=== PATIENT | female | born 1935 | race Caucasian/White ===

== ENCOUNTER → 2023-09-02 | Outpatient (REF) | payer MEDICARE, MEDICAID, SELFPAY ==
--- OUTSIDE RECORDS SUMMARY | 2023-09-02 05:19 | XMS RPT_ITS | CCD ---
Author Name Unknown Address [address] [place] [address] Organization [facility] Care Team Providers Care Stitcher Feeder Name Role Phone MO MARRERO DO Primary Care Physician Allergies Allergy Classification Reported Allergen(s) Allergy Type Date of Onset Reaction(s) Facility (1 source) Penicillin; Translations: [penicillins] Drug Allergy [facility] Medications Current Medications Medication Drug Class(es) Dates Sig (Normalized) Sig (Original) acetaminophen 325 mg oral capsule (1 source) Start: 12-26-2020 acetaminophen 325 mg oral capsule Dose : 650 mg = 2 cap(s), Oral, q4h, PRN as needed for pain, # 90 cap(s), 0 Refill(s) Start Date: 12/26/20 Status: Ordered allopurinol 100 mg oral tablet (1 source) Xanthine Oxidase Inhibitor Start: 01-15-2022 allopurinol 100 mg oral tablet Dose : 200 mg = 2 tab(s), Oral, qDay, # 60 tab(s), 0 Refill(s) Start Date: 01/15/22 Status: Ordered ascorbic acid 500 mg chewable tablet (1 source) Vitamin C Start: 06-29-2019 ascorbic acid 500 mg oral tablet, chewable Dose : 500 mg = 1 tab(s), Chewed, qDay, # 90 tab(s), 0 Refill(s) Start Date: 06/29/19 Status: Ordered atorvastatin 10 mg oral tablet (1 source) HMG-CoA Reductase Inhibitor Start: 07-09-2014 atorvastatin 10 mg oral tablet Dose : 10 mg = 1 tab(s), Oral, qHS Start Date: 07/09/14 Status: Ordered calcium carbonate 600 MG / ergocalciferol 200 UNT Oral Capsule (1 source) Provitamin D2 Compound Start: 06-29-2019 take 1 capsule by mouth once daily calcium-vitamin D 600 mg-200 intl units oral capsule Dose = 1 cap(s), Oral, Daily, 0 Refill(s) Start Date: 06/29/19 Status: Ordered donepezil hydrochloride 10 mg oral tablet (1 source) Start: 06-13-2017 donepezil 10 mg oral tablet Dose : 10 mg = 1 tab(s), Oral, BID Start Date: 06/13/17 Status: Ordered furosemide 20 mg oral tablet (1 source) Loop Diuretic Start: 12-26-2020 Lasix 20 mg oral tablet Dose : 40 mg = 2 tab(s), Oral, qAM, # 90 tab(s), 0 Refill(s) Start Date: 12/26/20 Status: Ordered guaiFENesin 20 mg/ml oral solution (1 source) Start: 06-29-2019 take 1 dose by mouth every four hours as needed guaiFENesin 100 mg/5 mL oral liquid Dose : 100 mg = 5 mL, Oral, q4h, PRN as needed for cough, # 300 mL, 0 Refill(s) Start Date: 06/29/19 Status: Ordered ammonium lactate 120 mg/ml topical lotion (1 source) Start: 12-26-2020 Lac-Hydrin 12% topical lotion Apply 1 leandro, Topical, BID, # 225 gram(s), 0 Refill(s), Lotion, 76.5 Start Date: 12/26/20 Status: Ordered lisinopril 20 mg oral tablet (1 source) Angiotensin Converting Enzyme Inhibitor Start: 06-11-2020 lisinopril 20 mg oral tablet Dose : 20 mg = 1 tab(s), Oral, Daily, # 90 tab(s), 2 Refill(s), 152.5, cm, 09/30/19 14:22:00 EST, Height, kg, 09/30/19 14:22:00 EST, Dosing Weight Start Date: 06/11/20 Status: Ordered memantine hydrochloride 10 mg oral tablet (1 source) I-drriqi-H-aspartat e Receptor Antagonist Start: 06-13-2017 memantine 10 mg oral tablet Dose : 10 mg = 1 tab(s), Oral, BID Start Date: 06/13/17 Status: Ordered metoprolol tartrate 25 mg oral tablet (1 source) beta-Adrenergic Pam Start: 01-15-2022 Metoprolol Succinate ER 25 mg oral TABLET extended release Dose : 12.5 mg = 0.5 tab(s), Oral, qAM, 0 Refill(s) Start Date: 01/15/22 Status: Ordered QUEtiapine 25 mg oral tablet (1 source) Atypical Antipsychotic Start: 01-15-2022 QUEtiapine 25 mg oral tablet Dose : 12.5 mg = 0.5 tab(s), Oral, Daily, 0 Refill(s) Start Date: 01/15/22 Status: Ordered rivaroxaban 20 mg oral tablet (1 source) Factor Xa Inhibitor Start: 06-29-2019 rivaroxaban 20 mg oral tablet Dose : 20 mg = 1 tab(s), Oral, with supper, 0 Refill(s) Start Date: 06/29/19 Status: Ordered vitamin b12 0.5 mg oral tablet (1 source) Vitamin B12 Start: 12-26-2020 cyanocobalamin 500 mcg oral tablet Dose : 500 mcg = 1 tab(s), Oral, Daily, # 30 tab(s), 0 Refill(s) Start Date: 12/26/20 Status: Ordered Completed/Discontinued Medications Medication Drug Class(es) Dates Sig (Normalized) Sig (Original) magnesium oxide 400 mg oral tablet (1 source) Start: 06-29-2019 End: 07-12-2019 magnesium oxide 400 mg (241.3 mg elemental magnesium) oral tablet Dose : 400 mg = 1 tab(s), Oral, BID, # 14 tab(s), 0 Refill(s) Start Date: 06/29/19 Stop Date: 07/12/19 Status: Ordered Problems Problem Classification Problem Date Documented Date Episodic/Chronic Anxiety disorders (1 source) Anxiety 07-09-2014 Chronic Bacterial infection; unspecified site (1 source) Rheumatic fever 07-09-2014 Episodic Cardiac dysrhythmias (2 sources) Atrial fibrillation with rapid ventricular response; Translations: [Paroxysmal atrial fibrillation] 06-13-2017 Chronic Congestive heart failure; nonhypertensive (1 source) Heart failure with normal ejection fraction 01-15-2022 Chronic Delirium, dementia, and amnestic and other cognitive disorders (1 source) Dementia 02-15-2016 Chronic Disorders of lipid metabolism (1 source) Hypercholesterolemia 07-09-2014 Chronic Essential hypertension (1 source) Hypertensive disorder 07-09-2014 Chronic Other circulatory disease (1 source) Respiratory crackles 01-15-2022 Episodic Other nutritional; endocrine; and metabolic disorders (1 source) Hypomagnesemia 06-13-2017 Chronic Other skin disorders (1 source) Eruption 09-30-2019 Episodic Viral infection (1 source) Herpes zoster 09-30-2019 Episodic Results Test Name Value Interpretation Reference Range Facil ity Encounters Encounter Date Encounter Type Care Provider Facility Start: 01-15-2022 End: 01-15-2022 Patient encounter procedure MARIA DOLORES BRUCE MD [facility] Procedures Date Procedure Procedure Detail Performing Clinician Start: 07-14-2017 [facility] GERARD BRUCE MD Immunizations Immunization Date Immunization Notes Care Provider Fa cility 06-26-2020 influenza virus vaccine, unspecified formulation MARIA DOLORES BRUCE MD [facility] 06-07-2019 influenza virus vaccine, unspecified formulation MARIA DOLORES BRUCE MD [facility] 05-24-2018 influenza virus vaccine, unspecified formulation MARIA DOLORES BRUCE MD [facility] 07-10-2015 influenza virus vaccine, unspecified formulation MARIA DOLORES BRUCE MD [facility] 02-01-2015 pneumococcal conjugate vaccine, 13 valent MARIA DOLORES BRUCE MD [facility] 10-06-2014 pneumococcal conjugate vaccine, 13 valent MARIA DOLORES BRUCE MD [facility] 04-24-2014 influenza virus vaccine, unspecified formulation MARIA DOLORES BRUCE MD [facility] 05-18-2012 influenza virus vaccine, unspecified formulation MARIA DOLORES BRUCE MD [facility] 02-04-2007 tetanus and diphtheria toxoids, adsorbed, preservative free, for adult use (5 Lf of tetanus toxoid and 2 Lf of diphtheria toxoid) MARIA DOLORES BRUCE MD [facility] Social History Date Type Detail Facility Start: 06-29-2019 Tobacco smoking status Never s moked tobacco (finding) [facility] Sex Assigned At Female [facility] Evaluation + Plan note 01-15-2022 Radiology Note Date & Type Note Facility 01-15-2022 Evaluation + Plan note Future Scheduled TestsXR Chest 2 Views (PA & Lateral) 01/15/[address] [facility] Hospital course Narrative Note Date & Type Note Facility Hospital course Narrative No data available for this section [facility] Hospital Discharge instructions Note Date & Type Note Facility Hospital Discharge instructions No data available for this section [facility] Progress note Note Date & Type Note Facility Progress note No data available for this section [facility] Summary Purpose Family History No Family History Records Found Advance Directives No Advanced Directives Records Found Additional Source Comments Care Team (unrecognized sect ion and content) Personnel Name: MO MARRERO Address: [address] [place] [address] INFORMATION SOURCE (unrecogn ized section and content) FOR RECORDS PERTAINING TO PATIENTS WHO ARE OR HAVE BEEN ENROLLED IN A CHEMICAL DEPENDENCY/SUBSTANCEABUSE PROGRAM, SOME INFORMATION MAY BE OMITTED. This clinical summary was aggregated from multiple sources. Caution should be exercised in using it in the provision of clinical care. This summary normalizes information from multiple sources, and as a consequence, information in this document may materially change the coding, format and clinical context of patient data. In addition, data may be omitted in some cases. CLINICAL DECISIONS SHOULD BE BASED ON THE PRIMARY CLINICAL RECORDS. [facility] [employer] provides no warranty or guarantee of the accuracy or completeness of information in this document.
[2023-09-02 08:17] LABS: Hematocrit 39.7 % (37-47); Hemoglobin 12.4 g/dL (12.0-15.0); Mean Corp Hgb Conc 31.2 g/dL (32-36); Mean Corpuscular Hgb 29.4 pg (27.0-32.0); Mean Corpuscular Volume 94.1 fL (81-99); Platelet Count 280 K/mm3 (150-450); RBC Distribution Width CV 16.9 % (11.6-14.6); RBC Distribution Width SD 57.7 fl (35.1-43.9); Red Blood Count 4.22 M/mm3 (4.2-5.4); White Blood Count 10.8 K/mm3 (4.4-11.0)
[2023-09-02 11:57] LABS: ALB/GLOB Ratio 0.8 RATIO (0.9-2.4); AST(SGOT) 21 U/L (15-37); Alanine Aminotransfer ALT/SGPT 20 U/L (13-56); Albumin, Serum 2.4 g/dL (3.2-5.0); Alkaline Phosphatase 140 U/L (45-117); Anion Gap 6 (5-15); BUN 26 mg/dL (7-18); BUN/Creat Ratio 27.6 RATIO (10-20); Calcium,Total 9.2 mg/dL (8.5-10.1); Chloride 110 mmol/L (98-107); Creatinine, Serum 0.94 mg/dL (0.55-1.02); EST Glomerular Filtration Rate 59 mL/min (>60); Est Glom Filt Rate - Afr Amer 72 mL/min (>60); Glucose 75 mg/dL (74-106); Potassium 3.9 mmol/L (3.5-5.1); Prealbumin 14.3 mg/dL (20.0-40.0); Protein, Total 5.4 g/dL (6.4-8.2); Sodium Level 141 mmol/L (136-145)
== END ==
LOC: OLS.SW 05:00
PROVIDERS: PCP Internal Medicine; Visit Provider Internal Medicine
DX: E46 Unspecified protein-calorie malnutrition (principal)
CPT/HCPCS: 36415; 80053; 84134; 85027

== ENCOUNTER → 2023-09-08 | Outpatient (REF) | payer MEDICARE, MEDICAID, SELFPAY ==
[2023-09-08 09:19] LABS: Hematocrit 38.4 % (37-47); Hemoglobin 12.4 g/dL (12.0-15.0); Mean Corp Hgb Conc 32.3 g/dL (32-36); Mean Corpuscular Hgb 30.2 pg (27.0-32.0); Mean Corpuscular Volume 93.4 fL (81-99); Mean Platelet Vol. 10.3 fl (6.2-12.0); Platelet Count 256 K/mm3 (150-450); RBC Distribution Width CV 16.8 % (11.6-14.6); RBC Distribution Width SD 56.5 fl (35.1-43.9); Red Blood Count 4.11 M/mm3 (4.2-5.4); White Blood Count 10.2 K/mm3 (4.4-11.0)
--- OUTSIDE RECORDS SUMMARY | 2023-09-08 09:23 | XMS RPT_ITS | CCD ---
Author Name Unknown Address [address] [place] [address] Organization [facility] Care Team Providers Care Nurse Healthcare Manager Name Role Phone MO MARRERO DO Primary Care Physician Allergies Allergy Classification Reported Allergen(s) Allergy Type Date of Onset Reaction(s) Facility (1 source) Penicillin; Translations: [penicillins] Drug Allergy [facility] Medications Current Medications Medication Drug Class(es) Dates [...] hydrochloride 10 mg oral tablet (1 source) R-temqwk-H-aspartat e Receptor Antagonist Start: 06-13-2017 memantine 10 [...] Patient encounter procedure MARIA DOLORES BRUCE MD [facility] Procedures Date Procedure Procedure Detail Performing Clinician Start: 07-14-2017 [facility] GERARD BRUCE MD Immunizations Immunization Date Immunization Notes Care Provider Fa cility 06-26-2020 influenza virus vaccine, unspecified formulation MARIA DOLORES BRUCE MD [facility] 06-07-2019 influenza virus vaccine, unspecified formulation MARIA DOLORES BRUCE MD [facility] 05-24-2018 influenza virus vaccine, unspecified formulation MARIA DOLORES BRUCE MD [facility] 07-10-2015 influenza virus vaccine, unspecified formulation MARIA DOLORES BRUCE MD [facility] 02-01-2015 pneumococcal conjugate vaccine, 13 valent MARIA DOLORES BRUCE MD [facility] 10-06-2014 pneumococcal conjugate vaccine, 13 valent MARIA DOLORES BRUCE MD [facility] 04-24-2014 influenza virus vaccine, unspecified formulation MARIA DOLORES BRUCE MD [facility] 05-18-2012 influenza virus vaccine, unspecified formulation MARIA DOLORES BRUCE MD [facility] 02-04-2007 tetanus and diphtheria toxoids, adsorbed, preservative free, for adult use (5 Lf of tetanus toxoid and 2 Lf of diphtheria toxoid) MARIA DOLORES BRUCE MD [facility] Social History Date Type Detail Facility Start: 06-29-2019 Tobacco smoking status Never s moked tobacco (finding) [facility] Sex Assigned At Female [facility] Evaluation + Plan note 01-15-2022 Radiology Note Date & Type Note Facility 01-15-2022 Evaluation + Plan note Future Scheduled TestsXR Chest 2 Views (PA & Lateral) 01/15/22 [facility] Hospital course Narrative Note Date & Type Note Facility Hospital course Narrative No data available for this section [facility] Hospital Discharge instructions Note Date & Type Note Facility Hospital Discharge instructions No data available for this section [facility] Progress note Note Date & Type Note Facility Progress note No data available for this section [facility] Summary Purpose Family History No Family History Records Found Advance Directives No Advanced Directives Records Found Additional Source Comments Care Team (unrecognized sect ion and content) Personnel Name: MO MARRERO Address: [address] [place] [address] INFORMATION SOURCE (unrecogn ized section and [...] BE BASED ON THE PRIMARY CLINICAL RECORDS. [facility] [employer] provides no warranty or guarantee of the accuracy or completeness of information in this document.
[2023-09-08 09:25] LABS: Anion Gap 3 (5-15); BUN 20 mg/dL (7-18); BUN/Creat Ratio 28.5 RATIO (10-20); Calcium,Total 9.7 mg/dL (8.5-10.1); Chloride 107 mmol/L (98-107); EST Glomerular Filtration Rate 84 mL/min (>60); Est Glom Filt Rate - Afr Amer 101 mL/min (>60); Glucose 83 mg/dL (74-106); Potassium 3.6 mmol/L (3.5-5.1); Sodium Level 139 mmol/L (136-145)
== END ==
LOC: OLS.SW 06:55
PROVIDERS: PCP Internal Medicine; Visit Provider Internal Medicine
DX: J44.9 Chronic obstructive pulmonary disease, unspecified (principal)
CPT/HCPCS: 36415; 80048; 85027